=== PATIENT | female | born 1995 | race Caucasian/White ===

== ENCOUNTER 2017-02-14 10:13 | Emergency (ER) | payer BC ==
[2017-02-14 10:18] VITALS: BP 141/66; PULSE 103; RESP 18; TEMP 100
[2017-02-14] MEDS ORDERED: BUPIVACAINE (PF) 0.5% 30 ML VIAL SQ STA (10:35)
[2017-02-14] MEDS ORDERED: LIDOCAINE 1%-EPI 1:100,000 20 ML VIAL SQ STA (10:35)
--- NOTE | 2017-02-14 10:37 | ED ---
Skin/Abscess/FB HPI - General Chief complaint: Skin/Abscess/Foreign Body Stated complaint: cyst Time Seen by Provider: 02/14/17 10:30 Source: patient Mode of arrival: ambulatory Limitations: no limitations - History of Present Illness Initial comments: This 21-year-old white female presents complaining of a pilonidal abscess. She states that it has been bothering her for the past one week. It is caused her a moderate amount of pain. It is had some minimal drainage at times. She was seen at the urgent care 2 days ago and they apparently set her up with an appointment for surgeon. She has an appointment tomorrow. She states that the pain was too significant to wait until tomorrow. She denies any fever at home but does present with a temperature of 100 here. She apparently had similar incident when she is approximately 13. No other complaints or modifying factors. - Related Data Previous Rx's Medication Instructions Recorded Sulfamethox-Tmp 800-160Mg [Bactrim 1 tab PO Q12HR #20 tab 02/14/17 DS 800-160 mg] traMADol HCl [Ultram] 50 - 100 mg PO Q6H PRN #15 tab 02/14/17 Allergies Allergy/AdvReac Type Severity Reaction Status Date / Time No Known Allergies Allergy Verified 02/14/17 10:17 Review of Systems ROS Statement: Those systems with pertinent positive or pertinent negative responses have been documented in the HPI. ROS Other: All systems not noted in ROS Statement are negative. Past Medical History Additional Past Medical History / Comment(s): PCOS History of Any Multi-Drug Resistant Organisms: None Reported Past Surgical History: No Surgical Hx Reported Past Psychological History: Depression Smoking Status: Never smoker Past Alcohol Use History: None Reported Past Drug Use History: None Reported General Exam Limitations: no limitations General appearance: alert, in no apparent distress Psychiatric exam: Present: normal affect, normal mood Skin exam: Present: other (There is an obvious pilonidal abscess noted. There is tenderness and erythema noted to the superior midline buttock region. There is fluctuance identified.) Course Vital Signs 02/14/17 10:14 Temperature 100.0 F H Pulse Rate 103 H Respiratory 18 Rate Blood Pressure 141/66 O2 Sat by Pulse 100 Oximetry Medical Decision Making - Medical Decision Making The patient was seen and examined. It is felt as though this would require incision and drainage. The patient is agreeable. The areas prepped and draped in usual sterile fashion. Utilizing some lidocaine with epinephrine and bupivacaine the area is anesthetized with 10 mL of a one-to-one mixture. She obtained excellent anesthesia. Utilizing 11 blade scalpel an incision was made into the area of mass fluctuance. A significant amount of purulence was expressed. The wound was irrigated as well with saline and Betadine mixture. The abscess also was packed with 1/4 inch iodoform packing. She does have an appointment with a surgeon tomorrow. She is unsure of the name. Is felt important to continue with this appointment. She leaves in much less distress. Return parameters are discussed. Disposition Clinical Impression: Pilonidal abscess Disposition: HOME SELF-CARE Condition: Good Instructions: Abscess Incision and Drainage (ED), Pilonidal Cyst (ED) Additional Instructions: Please follow-up with the surgeon tomorrow as scheduled. Prescriptions: Sulfamethox-Tmp 800-160Mg [Bactrim DS 800-160 mg] 1 tab PO Q12HR #20 tab traMADol HCl [Ultram] 50 - 100 mg PO Q6H PRN #15 tab PRN Reason: Pain Referrals: Hawa Johnson MD [Primary Care Provider] - 1-2 days Time of Disposition: 11:03
== END 2017-02-14 11:11 | disposition home or self-care (01) ==
LOC: EC 10:13
DX: L05.01 Pilonidal cyst with abscess (principal)
CPT/HCPCS: 10080; 99282

== ENCOUNTER 2017-02-25 12:15 | Day surgery (SDC) | payer BC ==
[2017-02-22 18:26] VITALS: BMI 35.5
[~2017-02-25 12:15] MED LIST: DEXAMETHASONE SOD PHOSPHATE 10 MG/ML 1 ML VIAL IV ONE; HEPARIN SODIUM,PORCINE 5,000 UNIT/ML 1 ML VIAL SQ ONE; HYDROmorphone 1 MG/ML 1 ML SYRINGE IVP PRN; LACTATED RINGERS 1,000 ML IV SCH; ONDANSETRON 4 MG/2 ML VIAL IVP ONE; ceFAZolin 2 GM in SODIUM CHLORIDE 0.9% 100 ML IVPB ONE; metroNIDAZOLE-NS PMX 500 MG in SALINE 1 100ML.BAG IVPB ONE
--- NOTE | 2017-02-25 14:33 | P.GSHP ---
History of Present Illness H&P Date: 02/25/17 Chief Complaint: Pilonidal cyst This is a 21-year-old female referred from Dr. Higgins. Patient presents today for excision of chronically infected pilonidal cyst. Past Medical History Additional Past Medical History / Comment(s): PCOS. HEART MURMUR. HX ELEV BLOOD PRESSURE. PILONIDAL CYST CURRENTLY. History of Any Multi-Drug Resistant Organisms: None Reported Past Surgical History: No Surgical Hx Reported Additional Past Surgical History / Comment(s): EXC WISDOM TEETH. Past Anesthesia/Blood Transfusion Reactions: Motion Sickness, Postoperative Nausea & Vomiting (PONV) Past Psychological History: No Psychological Hx Reported Additional Psychological History / Comment(s): DENIES Smoking Status: Never smoker Past Alcohol Use History: Rare Past Drug Use History: None Reported - Past Family History Mother Family Medical History: No Reported History Medications and Allergies Allergies Allergy/AdvReac Type Severity Reaction Status Date / Time No Known Allergies Allergy Verified 02/25/17 12:55 Surgical - Exam Vital Signs Temp Pulse Resp BP Pulse Ox 97.4 F L 79 16 154/63 99 02/25/17 13:10 02/25/17 13:10 02/25/17 13:10 02/25/17 13:10 02/25/17 13:10 - General well developed, no distress - Eyes PERRL - ENT normal pinna - Neck no masses - Respiratory normal expansion - Cardiovascular Rhythm: regular - Abdomen Abdomen: soft, non tender - Integumentary Chronically infected pilonidal cyst Assessment and Plan Plan: Chronically infected pilonidal cyst. We'll perform excision. The patient will be packed.
[2017-02-25] MEDS ORDERED: LIDOCAINE 1% INJ 10MG/ML (20 ML MDV) ONE (14:44)
[2017-02-25] MEDS ORDERED: PROPOFOL 10 MG/ML 20 ML VIAL IV ONE (14:44)
[2017-02-25] MEDS ORDERED: HEPARIN SODIUM,PORCINE 5,000 UNIT/ML 1 ML VIAL ONE (14:44)
[2017-02-25] MEDS ORDERED: SUCCINYLCHOLINE CHLORIDE 100 MG/5 ML SYR IV ONE (14:44)
[2017-02-25] MEDS ORDERED: fentaNYL (PF) 50 MCG/ML 2 ML AMP ONE (14:44)
[2017-02-25] MEDS ORDERED: KETOROLAC 30 MG/ML 1 ML VIAL ONE (14:44)
[2017-02-25] MEDS ORDERED: MIDAZOLAM 2 MG/2 ML VIAL ONE (14:44)
[2017-02-25] MEDS ORDERED: BUPIVACAIN-EPI 0.25%-1:200,000 30 ML VIAL SQ ONE (15:12)
--- NOTE | 2017-02-25 15:31 | P.OP ---
Date of Procedure: 02/25/17 Preoperative Diagnosis: Pilonidal cyst Postoperative Diagnosis: Chronically infected pilonidal cyst Procedure(s) Performed: Excision of chronically infected pilonidal cyst Implants: Anesthesia: GETA Surgeon: Jonn Serna Estimated Blood Loss (ml): 5 Pathology: other (Pilonidal cyst) Condition: stable Disposition: PACU Indications for Procedure: Operative Findings: Description of Procedure: The patient's placed in the operative table in the prone position after being intubated. Her pilonidal cyst area is prepped and draped usual sterile fashion. The skin was incised using a 15 blade. Using the Harmonic scissors electrocautery the pilonidal cyst was excised. There is evidence of a chronic cyst cavity. The Bovie was used hemostasis. The wound was packed with dry Kerlix. Patient top procedure well and was sent to recovery in stable condition.
[2017-02-25 15:49] VITALS: TEMP 98
[2017-02-25 16:30] VITALS: RESP 18
[2017-02-25 16:51] VITALS: BP 104/68; PULSE 88
== END 2017-02-25 17:22 | disposition home or self-care (01) ==
LOC: OR 12:15
PROVIDERS: ATTEND Surgery
DX: L05.01 Pilonidal cyst with abscess (principal); Z79.2 Long term (current) use of antibiotics; Z79.891 Long term (current) use of opiate analgesic
CPT/HCPCS: 81025; 88304; 11770; J2250; J1644; J0690; J2001; J3010; J1885; J0330; J2704

== ENCOUNTER 2020-12-15 19:56 | Emergency (ER) | payer OTHER ==
[2020-12-15 20:06] VITALS: RESP 18
[2020-12-15] MEDS ORDERED: ASPIRIN 81 MG PO STA (20:46)
--- NOTE | 2020-12-15 21:21 | XR ---
EXAMINATION TYPE: XR chest 2V DATE OF EXAM: 12/15/2020 COMPARISON: NONE HISTORY: Chest pain. TECHNIQUE: Frontal and lateral views of the chest are obtained. FINDINGS: There is no focal air space opacity, pleural effusion, or pneumothorax seen. The cardiac silhouette size is within normal limits. The osseous structures are intact. IMPRESSION: No acute cardiopulmonary process.
[2020-12-15 21:25] LABS: Basophils # (A) 0.1 k/uL (0-0.2); Basophils % (A) 1 %; Eosinophils # (A) 0.2 k/uL (0-0.7); Eosinophils % (A) 2 %; HCT 41.3 % (34.0-46.0); HGB 13.7 gm/dL (11.4-16.0); Lymphocytes # (A) 2.4 k/uL (1.0-4.8); Lymphocytes % (A) 30 %; MCH 26.3 pg (25.0-35.0); MCHC 33.3 g/dL (31.0-37.0); MCV 79.1 fL (80.0-100.0); Mean Platelet Volume 6.8; Monocytes # (A) 0.3 k/uL (0-1.0); Monocytes % (A) 3 %; Neutrophils # (A) 5.2 k/uL (1.3-7.7); Neutrophils % (A) 63 %; Platelet Count 306 k/uL (150-450); RBC 5.22 m/uL (3.80-5.40); RDW 14.1 % (11.5-15.5); WBC 8.3 k/uL (3.8-10.6)
[2020-12-15 21:36] LABS: Partial Thromboplastin Time 26.3 sec (22.0-30.0); Prothrombin Time 10.4 sec (9.0-12.0)
[2020-12-15 21:40] LABS: ALT 31 U/L (4-34); AST 28 U/L (14-36); African American GFR (CKD) >90 (>60 ml/min/1.73 sqM); Albumin 5.2 g/dL (3.5-5.0); Alkaline Phosphatase 93 U/L (38-126); Anion Gap 10 mmol/L; Blood Urea Nitrogen 11 mg/dL (7-17); Carbon Dioxide 32 mmol/L (22-30); Chloride 97 mmol/L (98-107); Glucose 104 mg/dL (74-99); Magnesium 2.2 mg/dL (1.6-2.3); Non-African American GFR(CKD) >90 (>60 ml/min/1.73 sqM); Sodium 139 mmol/L (137-145); Total Bilirubin 0.5 mg/dL (0.2-1.3); Total Protein 8.7 g/dL (6.3-8.2)
--- NOTE | 2020-12-15 22:13 | ED ---
Chest Pain HPI - General Chief Complaint: Chest Pain Stated Complaint: Chest pain Time Seen by Provider: 12/15/20 20:20 Source: patient Mode of arrival: ambulatory Limitations: no limitations - History of Present Illness Initial Comments: 25-year-old female with dyslipidemia, hypertension, PCOS presented to the emergency department today for chief complaint of chest discomfort. Patient states she has had a chest discomfort on and off for the past 2 months. She states she's had a lot of life stressors and recent prescribe something for high blood pressure. She states that her mother had a pace maker placed yesterday and she has been very stressed about this. Patient states she believes this is mostly anxiety and just wanted to be sure . She denies any leg swelling, hemoptysis she denies shortness of breath she denies jaw pain, arm pain. Patient denies nausea, abdominal pain, vomiting. Patient states she does struggle with indigestion. Patient states that this morning she was having a lot of anxiexty and burning sensation in the chest and felt she should come here for evaluation. ON arrival BP elevated - Related Data Home Medications Medication Instructions Recorded Confirmed Ergocalciferol (Vitamin D2) 1,250 mcg PO MO 12/15/20 12/15/20 [Drisdol (50,000 Iu)] Folic Acid 1 mg PO DAILY 12/15/20 12/15/20 [place]-3 Fatty Acids/Fish Oil [Fish 1 cap PO DAILY 12/15/20 12/15/20 Oil 1,000 mg Softgel] PARoxetine [Paxil] 10 mg PO DAILY 12/15/20 12/15/20 Ubidecarenone [Co Q-10] 100 mg PO DAILY 12/15/20 12/15/20 Allergies Allergy/AdvReac Type Severity Reaction Status Date / Time No Known Allergies Allergy Verified 12/15/20 21:20 Review of Systems ROS Statement: Those systems with pertinent positive or pertinent negative responses have been documented in the HPI. ROS Other: All systems not noted in ROS Statement are negative. Past Medical History Past Medical History: Hyperlipidemia, Hypertension Additional Past Medical History / Comment(s): PCOS. HEART MURMUR. HX ELEV BLOOD PRESSURE. PILONIDAL CYST CURRENTLY. History of Any Multi-Drug Resistant Organisms: None Reported Past Surgical History: No Surgical Hx Reported Additional Past Surgical History / Comment(s): EXC WISDOM TEETH. Past Anesthesia/Blood Transfusion Reactions: Motion Sickness, Postoperative Nausea & Vomiting (PONV) Past Psychological History: Depression Smoking Status: Never smoker Past Alcohol Use History: Rare Past Drug Use History: None Reported - Past Family History Mother Family Medical History: No Reported History General Exam - General Exam Comments Initial Comments: General: The patient is awake and alert, in no distress Eye: +3 mm pupils are equal, round and reactive to light, extra-ocular movements are intact. No nystagmus. There is normal conjunctiva bilaterally. No signs of icterus. Ears, nose, mouth and throat: There are moist mucous membranes and no oral lesions. Neck: The neck is supple, there is no tenderness or JVD. Cardiovascular: There is a regular rate and rhythm. No murmur, rub or gallop is appreciated. Respiratory: Lungs are clear to auscultation, respirations are non-labored, breath sounds are equal. No wheezes, stridor, rales, or rhonchi. Gastrointestinal: Soft, non-distended, non-tender abdomen without masses or organomegaly noted. There is no rebound or guarding present. Musculoskeletal: Normal ROM, no tenderness. Strength 5/5. Sensation intact. Radial and DP pulses equal bilaterally 2+. Neurological: A&O x 3. CN II-XII intact grossly, There are no obvious motor or sensory deficits. Coordination appears grossly intact. Speech is normal. Skin: Skin is warm and dry and no rashes or lesions are noted. No calf pain or lower extremity edema. Psychiatric: Cooperative, appropriate mood & affect, normal judgment. Limitations: no limitations Course Vital Signs 12/15/20 12/15/20 12/15/20 20:00 21:05 22:25 Temperature 98.9 F Pulse Rate 84 78 80 Respiratory 18 18 18 Rate Blood Pressure 168/99 157/99 146/93 O2 Sat by Pulse 98 100 100 Oximetry 12/15/20 12/15/20 23:38 23:51 Temperature 98.1 F Pulse Rate 78 Respiratory 18 Rate Blood Pressure 157/92 O2 Sat by Pulse 97 Oximetry Chest Pain MDM - MDM 25-year-old with anxiety and chest discomfort. Heart score low 2-3 pt for PMH and story. Patient EKG WNL. patient had troponin (-) x 2. including 3 hour troponin. symptoms > 1 month on and off. Patient had an echo scheduled for due to an old murmur. patient CXR clear. at this time i feel pt is stbale for discharge with PCP f/u. patient is agreeable to this care plan. Dr Leo agreeable to care plan. Disposition Clinical Impression: Chest discomfort, Anxiety Disposition: HOME SELF-CARE Condition: Good Instructions (If sedation given, give patient instructions): Chest Pain (ED) Additional Instructions: Please use medication as discussed. Please follow-up with family doctor in the next 2 days, recommend outpatient stress testing and echocardiogram. Return for recurrent pain. Please return to emergency room if the symptoms increase or worsen or for any other concerns. Is patient prescribed a controlled substance at d/c from ED?: No Referrals: Hawa Johnson MD [Primary Care Provider] - 1-2 days Time of Disposition: 23:46
[2020-12-15] MEDS ORDERED: LORazepam 2 MG/ML INJ IV STA (22:42)
[2020-12-15 23:40] VITALS: BP 157/92; PULSE 78
[2020-12-15 23:52] VITALS: TEMP 98.1
== END 2020-12-15 23:52 | disposition home or self-care (01) ==
LOC: EC 19:56
DX: R07.89 Other chest pain (principal); F41.9 Anxiety disorder, unspecified; E78.5 Hyperlipidemia, unspecified; I10 Essential (primary) hypertension; F32.9 Major depressive disorder, single episode, unspecified
CPT/HCPCS: 36415; 93005; 83880; 80053; 83735; 84484; 85025; 85610; 85730; 81025; 71046; 99285; 96374; J2060

== ENCOUNTER → 2020-12-17 | Outpatient (CLI) | payer BC, OTHER ==
--- NOTE | 2020-12-18 11:00 | ECHOF ---
Referral Reason:I10 hypertension MEASUREMENTS -------- HEIGHT: 167.6 cm WEIGHT: 111.1 kg BP: RVIDd: 3.8 cm (< 3.3) IVSd: 1.3 cm (0.6 - 1.1) LVIDd: 4.2 cm (3.9 - 5.3) LVPWd: 1.3 cm (0.6 - 1.1) IVSs: 1.4 cm LVIDs: 2.4 cm LVPWs: 1.9 cm LAESV Index (A-L): 15.52 ml/m Ao Diam: 2.2 cm (2.0 - 3.7) AV Cusp: 1.9 cm (1.5 - 2.6) MV EXCURSION: 16.144 mm (> 18.000) MV EF SLOPE: 76 mm/s (70 - 150) EPSS: 0.4 cm MV E Hugo: 0.96 m/s MV DecT: 197 ms MV A Hugo: 0.68 m/s MV E/A Ratio: 1.42 RAP: 5.00 mmHg RVSP: 25.76 mmHg FINDINGS -------- Sinus rhythm. This was a technically adequate study. The left ventricular size is normal. There is mild concentric left ventricular hypertrophy. Overa ll left ventricular systolic function is normal with, an EF between 55 - 60 %. The diastolic fillin g pattern is normal for the age of the patient 7.51. The right ventricle is mild to moderately enlarged. Normal LA size by volume 22+/-6 ml/m2. The right atrial size is normal. Interatrial and interventricular septum intact. There is no evidence of aortic regurgitation. There is no evidence of aortic stenosis. No mitral regurgitation. Mild tricuspid regurgitation present. There is no evidence of pulmonary hypertension. The right v entricular systolic pressure, as measured by Doppler, is 25.76mmHg. There is no pulmonic regurgitation present. The aortic root size is normal. IVC Not well visulized. There is no pericardial effusion. CONCLUSIONS -------- 1. The left ventricular size is normal. 2. There is mild concentric left ventricular hypertrophy. 3. Overall left ventricular systolic function is normal with, an EF between 55 - 60 %. 4. The diastolic filling pattern is normal for the age of the patient 7.51 5. The right ventricle is mild to moderately enlarged. 6. Mild tricuspid regurgitation present. [employer]: Kathryn Blanchard RDCS
== END | disposition home or self-care (01) ==
LOC: RADECHMAIN 13:48
PROVIDERS: ATTEND Family Medicine
DX: I07.1 Rheumatic tricuspid insufficiency (principal)
CPT/HCPCS: 93306

== ENCOUNTER → 2021-01-19 | Outpatient (CLI) | payer OTHER ==
[2021-01-19 15:19] LABS: Chol/HDL Ratio 5.14; LDL Cholesterol,Calculated 120.2 mg/dL (0.0-131.0); VLDL Calculation 32.8 mg/dL (5.00-40.00)
== END | disposition home or self-care (01) ==
LOC: LABWHC1 08:57
PROVIDERS: ATTEND Internal Medicine Cardiovascular Disease
DX: E78.2 Mixed hyperlipidemia (principal)
CPT/HCPCS: 36415; 80061; 84450; 84460

== ENCOUNTER → 2021-01-19 | Outpatient (CLI) | payer OTHER ==
--- NOTE | 2021-01-19 09:19 | US ---
EXAMINATION TYPE: US renal artery duplex complet DATE OF EXAM: 01/19/2021 COMPARISON: NONE CLINICAL HISTORY: I10 hypertension. intermittent HTN for years MEASUREMENTS: RENAL SIZE: Rt Kidney: 11.4 x 4.5 x 4.9cm Lt Kidney: 11.5 x 5.4 x 4.9cm RESISTANCE INDEX Right: 0.63 Left: 0.64 RA/AO RATIO (< 3.5 ) Right: 1.6 Left: 2.0 RA VELOCITY ( < 180 cm/s) Right: 154.1cm/s Left: 194.7cm/s Technical limitations due to patient's body habitus and large amount of overlying bowel content. ao rta and renals appear unremarkable. mildly elevated velocities left renal artery IMPRESSION: No evidence for renal artery stenosis at this time on this limited examination.
== END | disposition home or self-care (01) ==
LOC: RADUSWWP 08:00
PROVIDERS: ATTEND Family Medicine
DX: I10 Essential (primary) hypertension (principal)
CPT/HCPCS: 93975